=== PATIENT | female | born 2000 | race African-American/Black ===

== ENCOUNTER 2021-03-28 19:01 | Emergency (ER) | payer OTHER ==
[~2021-03-28] VITALS: Ht 157.5 cm; Wt 50.0 kg
[2021-03-28] MEDS ORDERED: IBUPROFEN 200 MG TABLET. PO ONE (21:45)
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
[2021-03-28] MEDS ORDERED: IBUP-1007 PO (22:53)
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
[2021-03-28 23:20] VITALS: BP 111/53
== END 2021-03-28 23:20 | disposition home or self-care (01) ==
LOC: ER 19:01
DX: S09.90XA Unspecified injury of head, initial encounter (principal); M54.2 Cervicalgia; V43.62XA Car passenger injured in collision with other type car in traffic accident, initial encounter; Y93.89 Activity, other specified; Y92.410 Unspecified street and highway as the place of occurrence of the external cause; Y99.8 Other external cause status
CPT/HCPCS: 70450; 72125; 81025; 99284-25; 99285-25